=== PATIENT | male | born 1970 | race Caucasian/White ===

== ENCOUNTER 2019-03-28 11:17 | Outpatient (CLI) | payer MEDICAID ==
[2019-03-28 11:53] LABS: BASOPHILS # (AUTO) 0.1 10^3/uL (0.0-0.1); BASOPHILS % (AUTO) 0.3 %; EOSINOPHILS % (AUTO) 0.1 %; HGB - HEMOGLOBIN 15.4 g/dL (14.0-18.0); LYMPHOCYTES # (AUTO) 1.1 10^3/uL (1.5-3.5); LYMPHOCYTES % (AUTO) 7.9 %; MEAN CORPUSCULAR HEMOGLOBIN 29.9 pg (27.0-31.0); MEAN CORPUSCULAR HGB CONC 35.1 g/dL (32.0-36.0); MEAN CORPUSCULAR VOLUME 85.2 fL (80.0-94.0); MEAN PLATELET VOLUME 9.5 fL (7.4-11.4); MONOCYTES # (AUTO) 0.7 10^3/uL (0.0-1.0); MONOCYTES % (AUTO) 4.6 %; NEUTROPHILS # (AUTO) 12.5 10^3/uL (1.5-6.6); NEUTROPHILS % (AUTO) 86.5 %; PLT - PLATELET COUNT 228 10^3/uL (130-450); RED BLOOD COUNT 5.15 10^6/uL (4.70-6.10); RED CELL DISTRIBUTION WIDTH 12.6 % (12.0-15.0); WHITE BLOOD COUNT 14.4 x10^3/uL (4.8-10.8)
[2019-03-28 12:35] LABS: ALBUMIN 4.6 g/dL (3.2-5.5); ALBUMIN/GLOBULIN RATIO 1.5 (1.0-2.2); ALKALINE PHOSPHATASE 39 IU/L (42-121); ALT ALANINE AMINOTRANSFERASE 39 IU/L (10-60); AST ASPARTATE AMINOTRANSFERASE 27 IU/L (10-42); BILIRUBIN,TOTAL 0.8 mg/dL (0.2-1.0); BUN - BLOOD UREA NITROGEN 12 mg/dL (6-20); CALCIUM 9.2 mg/dL (8.5-10.3); CARBON DIOXIDE - CO2 27 mmol/L (21-32); CHLORIDE 104 mmol/L (101-111); CHOL/HDL RATIO 4.4 (<5.0); CHOLESTEROL 162 mg/dL; CREATININE 0.7 mg/dL (0.6-1.2); GFR - MDRD 119 (>89); GLUCOSE 96 mg/dL (70-100); HDL CHOLESTEROL 37 mg/dL; LDL CHOLESTEROL,CALCULATED 104 mg/dL; LDL/HDL RATIO 2.8 (<3.6); SODIUM 139 mmol/L (135-145); TOTAL PROTEIN 7.6 g/dL (6.7-8.2); VLDL CHOLESTEROL 21 mg/dL
[2019-03-28 21:41] LABS: TRICHOMONAS VAGINALIS DNA NEGATIVE (NEGATIVE)
[2019-03-29 12:14] LABS: HEPATITIS C ANTIBODY NON-REACTIVE (NON-REACTIVE)
[2019-03-29 13:13] LABS: HIV AG/AB 4TH GEN NON-REACTIVE (NON-REACTIVE)
[2019-03-30 11:33] LABS: HSV 2 IGG TYPE SPECIFIC AB <0.90 index
== END 2019-03-28 11:18 | disposition home or self-care (01) ==
LOC: LAB 11:17
PROVIDERS: ATTEND Nurse Practitioner
DX: Z13.220 Encounter for screening for lipoid disorders (principal); Z13.228 Encounter for screening for other metabolic disorders; Z12.11 Encounter for screening for malignant neoplasm of colon; Z11.3 Encounter for screening for infections with a predominantly sexual mode of transmission
CPT/HCPCS: 36415; 80053; 80061; 81599; 83721; 85025; 86317; 86695; 86696; 86704; 86803; 87389; 87491; 87591; 87661

== ENCOUNTER 2019-04-03 09:51 | Outpatient (CLI) | payer MEDICAID ==
--- NOTE | 2019-04-04 04:36 | Ultrasound Report ---
Reason: GROIN MASS RT Procedure Date: 04/03/2019 Accession Number: [id number] / [id number] Procedure: US - Pelvic Limited or F/U CPT Code: Final Report FULL RESULT: EXAM: INGUINAL ULTRASOUND EXAM DATE: 04/04/2019. CLINICAL HISTORY: GROIN MASS RT. COMPARISON: None. TECHNIQUE: Real-time sonographic imaging of the right inguinal canal and vascular structures, including color-flow, was performed by the supervisor grinding. Multiple apprenticeship training representative static images were saved for review. FINDINGS: Hernia: Fat-containing direct inguinal hernia with a 2.8 cm neck enlarges on Valsalva and is completely reducible. Soft Tissues: Normal. No fluid collections or adenopathy. Other: None. IMPRESSION: Reducible fat-containing direct inguinal hernia. RADIA
== END 2019-04-03 09:52 | disposition home or self-care (01) ==
LOC: DI 09:51
PROVIDERS: ATTEND Nurse Practitioner
DX: K40.90 Unilateral inguinal hernia, without obstruction or gangrene, not specified as recurrent (principal)
CPT/HCPCS: 76857

== ENCOUNTER 2019-05-04 12:42 | Emergency (ER) | payer MEDICAID ==
[2019-05-04 13:16] LABS: BASOPHILS # (AUTO) 0.1 10^3/uL (0.0-0.1); BASOPHILS % (AUTO) 0.5 %; EOSINOPHILS # (AUTO) 0.1 10^3/uL (0.0-0.7); EOSINOPHILS % (AUTO) 0.4 %; LYMPHOCYTES # (AUTO) 1.6 10^3/uL (1.5-3.5); MEAN CORPUSCULAR HEMOGLOBIN 30.6 pg (27.0-31.0); MEAN CORPUSCULAR HGB CONC 35.1 g/dL (32.0-36.0); MEAN CORPUSCULAR VOLUME 87.2 fL (80.0-94.0); MEAN PLATELET VOLUME 8.9 fL (7.4-11.4); MONOCYTES # (AUTO) 1.1 10^3/uL (0.0-1.0); MONOCYTES % (AUTO) 4.8 %; NEUTROPHILS # (AUTO) 19.3 10^3/uL (1.5-6.6); NEUTROPHILS % (AUTO) 86.4 %; PLT - PLATELET COUNT 277 10^3/uL (130-450); RED BLOOD COUNT 5.88 10^6/uL (4.70-6.10); RED CELL DISTRIBUTION WIDTH 13.2 % (12.0-15.0); WHITE BLOOD COUNT 22.4 x10^3/uL (4.8-10.8)
--- NOTE | 2019-05-04 13:19 | XRAY Report ---
Reason: Chest pain Procedure Date: 05/04/2019 Accession Number: [id number] / [id number] Procedure: XR - Chest 1 View X-Ray CPT Code: 70176 Final Report FULL RESULT: EXAM: CHEST RADIOGRAPHY EXAM DATE: 05/04/2019 01:09 PM. CLINICAL HISTORY: Chest pain. COMPARISON: None. TECHNIQUE: 1 view. FINDINGS: Lungs/Pleura: Hazy increased density in the lower aspects of both lungs. Upper chest is clear. Mediastinum: Within exam limitations, the cardiomediastinal contour is normal. Other: None. IMPRESSION: There is hazy increased density lower aspects of both lungs. Upper chest is clear. No other worrisome imaging features. RADIA
[2019-05-04 13:30] LABS: ALBUMIN 5.1 g/dL (3.2-5.5); ALBUMIN/GLOBULIN RATIO 1.5 (1.0-2.2); BILIRUBIN,TOTAL 0.4 mg/dL (0.2-1.0); CALCIUM 9.7 mg/dL (8.5-10.3); CREATININE 0.6 mg/dL (0.6-1.2); TOTAL PROTEIN 8.5 g/dL (6.7-8.2)
[2019-05-04 13:42] LABS: RBC MORPHOLOGY (MULTIPLE) 1+ ANISOCYTOSIS (NORMAL)
--- NOTE | 2019-05-04 14:49 | ED Physician Documentation ---
PD HPI CHEST PAIN - Stated complaint Stated Complaint: CHEST PX - Chief complaint Chief Complaint: Cardiac - History obtained from History obtained from: Patient - History of Present Illness Timing - onset: Enter time (1030), Today Timing - onset during: Rest Timing - duration: Hours (3) Timing - details: Abrupt onset, Now resolved Quality: Pressure, Tightness, Sharp Location: Substernal Radiation: Neck Worsened by: Exertion Associated symptoms: Shortness of air Similar symptoms before: Has not had sx before Recently seen: Not recently seen - Additional information Additional information: Previously well 48-year-old male has developed acute substernal chest pain at approximately 1030 this morning he had pressure radiated up into his neck. He did not have pain similar to this previously in his entire life. He felt that it would get better and when it did not he thought he should come into the emergency department and he is worried about having a heart attack. He does not have a history of coronary disease and he does not have prior admissions.He indicates that he generally stays away from the doctor he did see a primary for routine work 2 months ago. He does smoke. He denies any cough or congestion denies any fever and he states that over the past 20 days he has been mostly in his house by himself. He does not think he has exposure to coronavirus in the past 3 weeks. His first outing was yesterday to buy beer at the store. Later in the history he does admit to a cough which he states is something he always has and he states that he is more short of breath than usual and here we have given him a DuoNeb treatment and dexamethasone for reactive airway disease, he does have a tender chest wall. His chest CT does not demonstrate any evidence of infiltrate. He does have some evidence of emphysema and no evidence of dissection or pulmonary embolism. Review of Systems Constitutional: reports: Fatigue. denies: Fever, Chills, Myalgias Eyes: denies: Decreased vision Ears: denies: Loss of hearing, Ear pain Nose: denies: Rhinorrhea / runny nose, Congestion Throat: denies: Sore throat Cardiac: reports: Chest pain / pressure. denies: Palpitations, Pedal edema, Calf pain Respiratory: reports: Dyspnea. denies: Cough GI: denies: Abdominal Pain, Nausea, Vomiting : denies: Dysuria, Frequency Skin: denies: Rash Musculoskeletal: reports: Neck pain. denies: Back pain, Extremity pain Neurologic: denies: Generalized weakness, Focal weakness, Numbness PD PAST MEDICAL HISTORY - Past Medical History Past Medical History: Yes Cardiovascular: Hypertension Respiratory: None Neuro: None Endocrine/Autoimmune: None GI: None : None HEENT: Chronic vision loss Psych: None Musculoskeletal: None Derm: None Other Past Medical History: inguinal hernia - Present Medications Home Medications: Ambulatory Orders Medication Instructions Recorded Confirmed Albuterol Sulf [Ventolin Hfa 1 - 2 puffs INH Q4HR PRN #1 inhaler 05/04/19 Inhaler] Amox/Clav 875/125 [Augmentin] 1 each PO Q12H #20 tablet 05/04/19 predniSONE [Deltasone] 10 mg PO ONCE #26 tablet 05/04/19 - Allergies Allergies/Adverse Reactions: Allergies Allergy/AdvReac Type Severity Reaction Status Date / Time No Known Drug Allergies Allergy Verified 05/04/19 12:49 - Social History Does the pt smoke?: Yes Smoking Status: Current every day smoker Does the pt drink ETOH?: Yes ETOH Use: Beer Does the pt have substance abuse?: No - Immunizations Immunizations are current?: Yes - POLST Patient has POLST: No PD ED PE NORMAL - Vitals Vital signs reviewed: Yes (hypertensive ) - General General: Alert and oriented X 3, No acute distress, Well developed/nourished - HEENT HEENT: Atraumatic, PERRL, EOMI, Other (mild inflamation in the left TM not the right. ) - Neck Neck: Supple, no meningeal sign, No bony TTP - Cardiac Cardiac: RRR, No murmur - Respiratory Respiratory: No respiratory distress, Clear bilaterally - Abdomen Abdomen: Soft, Non tender - Back Back: No CVA TTP, No spinal TTP - Derm Derm: Normal color, Warm and dry, No rash - Extremities Extremities: No deformity, No edema, No calf tenderness / cord - Neuro Neuro: Alert and oriented X 3, medical records administrator 2-12 intact, No motor deficit, Normal speech Eye Opening: Spontaneous Motor: Obeys Commands Verbal: Oriented GCS Score: 15 - Psych Psych: Normal mood, Normal affect Results - Vitals Vitals: Vital Signs - 24 hr 05/04/19 05/04/19 05/04/19 12:49 13:55 14:52 Temperature 36.5 C 36.7 C Heart Rate 95 92 94 Respiratory 16 20 18 Rate Blood Pressure 142/89 H 120/86 H 124/92 H O2 Saturation 95 94 95 05/04/19 05/04/19 05/04/19 16:35 17:06 17:53 Temperature Heart Rate 105 H 98 90 Respiratory 16 17 17 Rate Blood Pressure 125/84 H 127/77 O2 Saturation 94 95 Oxygen O2 Source Room air - EKG (time done) 1255 Rate: Rate (enter#) (89) Rhythm: NSR Ischemia: Non specific changes (borderline lateral T wave flattening. ) Compare to prior EKG: Old EKG unavailable Computer interpretation: Disagree with computer (I do not see ST elevation in V1-4) - Labs Labs: Laboratory Tests 05/04/19 05/04/19 05/04/19 13:08 13:08 13:08 WBC 22.4 H RBC 5.88 Hgb 18.0 Hct 51.3 MCV 87.2 MCH 30.6 MCHC 35.1 RDW 13.2 Plt Count 277 MPV 8.9 Neut # (Auto) 19.3 H Lymph # (Auto) 1.6 Laurel # (Auto) 1.1 H Eos # (Auto) 0.1 Baso # (Auto) 0.1 Absolute Nucleated RBC 0.00 Nucleated RBC % 0.0 Manual Slide Review Indicated RBC Morph Micro Appear 1+ ANISOCYTOSIS Sodium 139 Potassium 4.0 Chloride 102 Carbon Dioxide 25 Anion Gap 12.0 BUN 10 Creatinine 0.6 Estimated GFR (MDRD) 143 Glucose 104 H Calcium 9.7 Total Bilirubin 0.4 AST 22 ALT 33 Alkaline Phosphatase 45 Troponin I High Sens < 2.3 L Total Protein 8.5 H Albumin 5.1 Globulin 3.4 Albumin/Globulin Ratio 1.5 Lipase 37 Influenza A (Rapid) Influenza B (Rapid) 05/04/19 05/04/19 14:30 15:42 WBC RBC Hgb Hct MCV MCH MCHC RDW Plt Count MPV Neut # (Auto) Lymph # (Auto) Laurel # (Auto) Eos # (Auto) Baso # (Auto) Absolute Nucleated RBC Nucleated RBC % Manual Slide Review RBC Morph Micro Appear Sodium Potassium Chloride Carbon Dioxide Anion Gap BUN Creatinine Estimated GFR (MDRD) Glucose Calcium Total Bilirubin AST ALT Alkaline Phosphatase Troponin I High Sens 3.1 Total Protein Albumin Globulin Albumin/Globulin Ratio Lipase Influenza A (Rapid) Negative Influenza B (Rapid) Negative - Rads (name of study) chest CT Radiology: Prelim report reviewed (Impression: No aortic aneurysm or dissection. No acute pulmonary emboli. Lungs clear. Moderate primarily paraseptal emphysema.), EMP read indepedently, See rad report Procedures - IVC sono (time) 1440 Bedside IVC sono: IVC measures (cm) (1.09), IVC collapsed c insp (cm) (co mplete), Dehydration (est 1 liter deficit.) PD MEDICAL DECISION MAKING - ED course Complexity details: reviewed results, re-evaluated patient, considered differential, d/w patient ED course: 48-year-old male with atypical chest pain rating up into his neck has had resolution of his chest pain still has a little bit of pain in his neck and on his chest x-ray he has findings consistent with a typical pneumonia bibasilar. This is in the setting of coronavirus epidemic beginning and the patient denies any specific exposure indicating that he had been at home the past 20 days. I was concerned about the neck pain enough that we obtained a CT aortogram. The CT aortogram is a detailed picture of the lungs showing clear lungs. He does have some emphysema showing up on the scan and he is administered a DuoNeb with improvement and he is given a dose of dexamethasone as well. He is taught how to use a spacer. He does have otitis on the left on examination. We will place patient on a course of antibiotic and prednisone as well as an inhaler. Concern for coronavirus is exceedingly low. Departure - Departure Disposition: 01 Home, Self Care Clinical Impression: Chest wall pain Asthmatic bronchitis with acute exacerbation Qualifiers: Asthma severity: mild Asthma persistence: intermittent Qualified Code(s): J45.21 - Mild intermittent asthma with (acute) exacerbation Otitis media Qualifiers: Otitis media type: suppurative Chronicity: acute Laterality: left Recurrence: non-recurrent Spontaneous tympanic membrane rupture: without spontaneous rupture Qualified Code(s): H66.002 - Acute suppurative otitis media without spontaneous rupture of ear drum, left ear Condition: Stable Instructions: ED Bronchitis Asthmatic, ED Otitis Media Acute Adult Follow-Up: Holly Agrawal ARNP, [employer] [Primary Care Provider] - Prescriptions: Albuterol Sulf [Ventolin Hfa Inhaler] 1 - 2 puffs INH Q4HR PRN #1 inhaler PRN Reason: Shortness Of Air/Wheezing Amox/Clav 875/125 [Augmentin] 1 each PO Q12H #20 tablet predniSONE [Deltasone] 10 mg PO ONCE #26 tablet Discharge Date/Time: 05/04/19 18:02
[2019-05-04] MEDS ORDERED: IOVERSOL 320 100 ML VIAL IVP ONE ×2 (14:54→15:46)
--- NOTE | 2019-05-04 15:35 | CT Report ---
Reason: chest pain aortagram Procedure Date: 05/04/2019 Accession Number: [id number] / [id number] Procedure: CT - ANGIO CHEST W/WO CPT Code: Final Report FULL RESULT: EXAM: CTA CHEST EXAM DATE: 05/04/2019 03:18 PM. CLINICAL HISTORY: Chest pain, rule out aortic dissection. COMPARISON: CHEST 1 VIEW 05/04/2019 12:50 PM. TECHNIQUE: Prior to and following intravenous administration of 80 cc Optiray 320, multiplanar 3D/MIP reconstruction of the thoracic aorta was performed. In accordance with CT protocol optimization, one or more of the following dose reduction techniques were utilized for this exam: automated exposure control, adjustment of mA and/or KV based on patient size, or use of iterative reconstructive technique. FINDINGS: Vascular Structures: No aortic aneurysm, dissection or stenoses identified. The pulmonary arteries show no acute pulmonary emboli. The mesenteric and renal vessels are within normal limits. Lungs/Pleura: Moderate changes of paraseptal emphysema present diffusely. More mild changes of centrilobular emphysema noted. No focal pulmonary opacities, effusions, nodules or edema evident. Mediastinum: Normal. No cardiac enlargement or adenopathy. Upper Abdomen: Unremarkable. Other: None. IMPRESSION: 1. No aortic aneurysm or dissection. 2. No acute pulmonary emboli. 3. Lungs clear. 4. Moderate primarily paraseptal emphysema. RADIA
[2019-05-04] MEDS ORDERED: SODIUM CHLORIDE 0.9% 1,000 ML IV ONE (16:24)
[2019-05-04] MEDS ORDERED: IPRATROPIUM/ALBUTEROL 3 ML NEB INH STA (16:24)
[2019-05-04] MEDS ORDERED: DEXAMETHASONE 10 MG/ML VIAL IVP STA (16:24)
[2019-05-04] MEDS ORDERED: cefTRIAXone 1 GM in SODIUM CHLORIDE 0.9% MINIBAG 100 ML IV STA (16:24)
[2019-05-04 17:54] VITALS: BP 127/77
== END 2019-05-04 18:02 | disposition home or self-care (01) ==
LOC: ED 12:42
DX: R07.89 Other chest pain (principal); J45.21 Mild intermittent asthma with (acute) exacerbation; H66.002 Acute suppurative otitis media without spontaneous rupture of ear drum, left ear; J43.9 Emphysema, unspecified; I10 Essential (primary) hypertension; F17.210 Nicotine dependence, cigarettes, uncomplicated
CPT/HCPCS: 36415; 71045; 71275; 80053; 81599; 83690; 84484; 85025; 87275; 87276; 93005; 94640; 96361; 96365; 96375; 99284; Q9967